=== PATIENT | female | born 1985 | race Caucasian/White ===

== ENCOUNTER 2016-07-11 11:26 | Inpatient (IN) | payer OTHER ==
[2016-07-11 15:22] VITALS: BMI 32.3
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
[2016-07-11] MEDS ORDERED: NICOTINE 14 MG/24 HOURS TOPICAL PATCH TD PRN (18:20)
[2016-07-11] MEDS ORDERED: MENTHOL/PHENOL 1 EACH UD MM PRN (18:20)
[2016-07-11] MEDS ORDERED: MAGNESIUM HYDROX 2400MG/30ML ORAL SUSPENSION 30 ML CUP PO PRN (18:20)
[2016-07-11] MEDS ORDERED: MAG HYDROX/AL HYDROX/SIMETH 30 ML UNIT-DOSE CUP PO PRN (18:20)
[2016-07-11] MEDS ORDERED: MAGNESIUM CITRATE 300 ML BOTTLE PO PRN (18:20)
[2016-07-11] MEDS ORDERED: guaiFENesin/D-METHORPHAN HB 10 ML UNIT-DOSE CUPS PO PRN (18:20)
[2016-07-11] MEDS ORDERED: LOPERAMIDE HCL 2 MG CAPSULE PO PRN (18:20)
[2016-07-11] MEDS ORDERED: P-EPHED 60MG/TRIPROLIDI 2.5MG TABLET PO PRN (18:20)
[2016-07-11] MEDS ORDERED: COLLOIDAL OATMEAL 1 BAR EACH TP PRN (18:25)
[2016-07-11] MEDS ORDERED: METHADONE HCL 10 MG TABLET (FOR DETOX USE ONLY) PO ONE ×2 (18:45→23:00)
[2016-07-11] MEDS: BACITRACIN 0.9 GM PACKET TP PRN (18:58)
[2016-07-11] MEDS: diazePAM 5 MG TABLET PO PRN (18:59)
[2016-07-11] MEDS: NICOTINE POLACRILEX 2 MG GUM BC PRN (20:11)
[2016-07-11] MEDS: THIAMINE HCL 100 MG TABLET (FP) PO SCH (22:45)
[2016-07-11] MEDS: diphenhydrAMINE HCL 50 MG CAPSULE PO PRN (22:46)
[2016-07-11 23:45] LABS: URINE APPEARANCE SLCLOUDY; URINE BILIRUBIN NEGATIVE (NEGATIVE); URINE COLOR YELLOW; URINE GLUCOSE (UA) NEGATIVE (NEGATIVE); URINE KETONE NEGATIVE (NEGATIVE); URINE LEUK ESTERASE NEGATIVE (NEGATIVE); URINE NITRITE NEGATIVE (NEGATIVE); URINE UROBILINOGEN 2.0 E.U/dl E.U./dl (0.2-1.0)
[2016-07-12 00:08] LABS: URINE BLOOD 2+ (NEGATIVE); URINE PROTEIN 1+ (NEGATIVE)
[2016-07-12 00:26] LABS: GRANULAR CASTS 1 /lpf; URINE MUCUS RARE; URINE RBC 5 /hpf (0-3); URINE WBC 8 /hpf (3-5)
[2016-07-12] MEDS ORDERED: METHADONE HCL 10 MG TABLET (FOR DETOX USE ONLY) PO ONE (10:00)
[2016-07-12 10:14] LABS: MCH 32.2 pg (25.7-33.7); MCHC 34.1 g/dl (32.0-36.0); MEAN CELL VOLUME 94.4 fl (80-96); MEAN PLT VOLUME 9.7 fl (7.5-11.1); PLATELET COUNT 181 K/MM3 (134-434); RDW 12.5 % (11.6-15.6); WHITE BLOOD COUNT 5.9 K/mm3 (4.0-10.0)
[2016-07-12 10:29] LABS: ALBUMIN 3.7 g/dl (3.4-5.0); ALK PHOS 88 U/L (45-117); ANION GAP 9 (8-16); BILIRUBIN,TOTAL 0.3 mg/dL (0.2-1.0); CALCIUM 8.5 mg/dL (8.5-10.1); CO2 27 mmol/L (21-32); CREATININE 0.9 mg/dL (0.55-1.02); GLUCOSE,RANDOM 120 mg/dL (74-106); SGOT/AST 29 U/L (15-37); SGPT/ALT 38 U/L (12-78); TOT PROT 7.8 g/dl (6.4-8.2)
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
[2016-07-12] MEDS: PRENATAL VITAMINS W/ FOLIC ACID TABLET (FP) PO SCH (11:15)
[2016-07-12] MEDS: diazePAM 5 MG TABLET PO PRN ×3 (11:29→22:40)
[2016-07-12] MEDS: NICOTINE POLACRILEX 2 MG GUM BC PRN ×2 (11:30→22:45)
--- NOTE | 2016-07-12 12:20 | EKG ---
Test Reason : Blood Pressure : / mmHG Vent. Rate : 079 BPM Atrial Rate : 079 BPM P-R Int : 160 ms QRS Dur : 090 ms QT Int : 396 ms P-R-T Axes : 000 -05 014 degrees QTc Int : 454 ms NORMAL SINUS RHYTHM CANNOT RULE OUT ANTERIOR INFARCT , AGE UNDETERMINED ABNORMAL ECG NO PREVIOUS ECGS AVAILABLE Confirmed by MD ZENA, YAW (2012) on 07/12/2016 12:19:46 PM Referred By: Confirmed By:YAW FREITAS MD
--- NOTE | 2016-07-12 15:02 | PN ---
BHS COWS - Scale Resting Pulse: 1= [place] 81-100 Sweatin= Chills/Flushing Restless Observation: 3= Extraneous Movement Pupil Size: 1= Pupils >than Normal Bone or Joint Aches: 2= Severe Diffuse Aches Runny Nose/ Eye Tearin= Runny Nose/Eyes GI Upset > 30mins: 2= Nausea/Diarrhea Tremor Observation of Outstretched Hands: 2= Slight Tremor Visible Yawning Observation: 1= 1-2x During Session Anxiety or Irritability: 2=Irritable/Anxious Goose Flesh Skin: 0=Smooth Skin COWS Score: 17 S Progress Note (SOAP) Subjective: ALERT,IRRITABLE,ANXIOUS,INTERRUPTED SLEEP,PAIN IN THE BODY AND BACK Objective: 07/12/16 15:00 Vital Signs Temperature 97.9 F 07/12/16 10:00 Pulse Rate 81 07/12/16 10:00 Respiratory Rate 18 07/12/16 10:00 Blood Pressure 119/61 07/12/16 10:00 O2 Sat by Pulse Oximetry (%) EKG NSR,INVERTED T IN V3 NO CHEST PAIN,NO SOB,NO DIZZINESS Laboratory Last Values WBC 5.9 K/mm3 (4.0-10.0) 07/12/16 06:00 RBC 4.48 M/mm3 (3.60-5.2) 07/12/16 06:00 Hgb 14.4 GM/dL (10.7-15.3) 07/12/16 06:00 Hct 42.3 % (32.4-45.2) 07/12/16 06:00 MCV 94.4 fl (80-96) 07/12/16 06:00 MCHC 34.1 g/dl (32.0-36.0) 07/12/16 06:00 RDW 12.5 % (11.6-15.6) 07/12/16 06:00 Plt Count 181 K/MM3 (134-434) 07/12/16 06:00 MPV 9.7 fl (7.5-11.1) 07/12/16 06:00 Sodium 142 mmol/L (136-145) 07/12/16 06:00 Potassium 4.3 mmol/L (3.5-5.1) 07/12/16 06:00 Chloride 106 mmol/L (98-107) 07/12/16 06:00 Carbon Dioxide 27 mmol/L (21-32) 07/12/16 06:00 Anion Gap 9 (8-16) 07/12/16 06:00 BUN 8 mg/dL (7-18) 07/12/16 06:00 Creatinine 0.9 mg/dL (0.55-1.02) 07/12/16 06:00 Creat Clearance w eGFR > 60 (>60) 07/12/16 06:00 Random Glucose 120 mg/dL (74-106) H 07/12/16 06:00 Calcium 8.5 mg/dL (8.5-10.1) 07/12/16 06:00 Total Bilirubin 0.3 mg/dL (0.2-1.0) 07/12/16 06:00 AST 29 U/L (15-37) 07/12/16 06:00 ALT 38 U/L (12-78) 07/12/16 06:00 Alkaline Phosphatase 88 U/L (45-117) 07/12/16 06:00 Total Protein 7.8 g/dl (6.4-8.2) 07/12/16 06:00 Albumin 3.7 g/dl (3.4-5.0) 07/12/16 06:00 Urine Color Yellow 07/11/16 23:40 Urine Appearance Slcloudy 07/11/16 23:40 Urine pH 8.0 (5.0-8.0) 07/11/16 23:40 Ur Specific [place] 1.015 (1.005-1.025) 07/11/16 23:40 Urine Protein 1+ (NEGATIVE) H 07/11/16 23:40 Urine Glucose (UA) Negative (NEGATIVE) 07/11/16 23:40 Urine Ketones Negative (NEGATIVE) 07/11/16 23:40 Urine Blood 2+ (NEGATIVE) H 07/11/16 23:40 Urine Nitrite Negative (NEGATIVE) 07/11/16 23:40 Urine Bilirubin Negative (NEGATIVE) 07/11/16 23:40 Urine Urobilinogen 2.0 e.u/dl E.U./dl (0.2-1.0) H 07/11/16 23:40 Ur Leukocyte Esterase Negative (NEGATIVE) 07/11/16 23:40 Urine RBC 5 /hpf (0-3) 07/11/16 23:40 Urine WBC 8 /hpf (3-5) 07/11/16 23:40 Ur Epithelial Cells Rare /hpf (FEW) 07/11/16 23:40 Granular Casts 1 /lpf 07/11/16 23:40 Urine Mucus Rare 07/11/16 23:40 RPR Titer Nonreactive (NONREACTIVE) 07/12/16 06:00 Assessment: 07/12/16 15:01 WITHDRAWAL SYMPTOM Plan: CONTINUE DETOX,REPEAT UA,BGM MONITORING,INITIAL GLUCOSE 120
[2016-07-12] MEDS: MIRTAZAPINE 15 MG TABLET (FP) PO SCH (22:40)
[2016-07-12] MEDS: diphenhydrAMINE HCL 50 MG CAPSULE PO PRN (22:40)
[2016-07-12] MEDS: THIAMINE HCL 100 MG TABLET (FP) PO SCH (22:40)
[2016-07-13] MEDS ORDERED: METHADONE HCL 5 MG TABLET (FOR DETOX USE ONLY) PO ONE (10:00)
[2016-07-13] MEDS: PRENATAL VITAMINS W/ FOLIC ACID TABLET (FP) PO SCH (10:43)
[2016-07-13] MEDS: BACITRACIN 0.9 GM PACKET TP PRN ×2 (10:45→22:35)
[2016-07-13] MEDS: diazePAM 5 MG TABLET PO PRN ×3 (12:44→22:35)
--- NOTE | 2016-07-13 12:51 | PN ---
BHS COWS - Scale Resting Pulse: 1= [place] 81-100 Sweatin= Chills/Flushing Restless Observation: 3= Extraneous Movement Pupil Size: 1= Pupils >than Normal Bone or Joint Aches: 2= Severe Diffuse Aches Runny Nose/ Eye Tearin= Runny Nose/Eyes GI Upset > 30mins: 3= Vomiting/Diarrhea Tremor Observation of Outstretched Hands: 2= Slight Tremor Visible Yawning Observation: 1= 1-2x During Session Anxiety or Irritability: 2=Irritable/Anxious Goose Flesh Skin: 0=Smooth Skin COWS Score: 18 BHS Progress Note (SOAP) Subjective: ALERT,IRRITABLE,ANXIOUS,INTERRUPTED SLEEP,TREMOR,PAIN IN THE BOD AND BACK, MULTIPLE ABRASION OF FACE FROM SCRATCH Objective: 07/13/16 12:50 Vital Signs Temperature 99 F 07/13/16 09:56 Pulse Rate 88 07/13/16 09:56 Respiratory Rate 18 07/13/16 09:56 Blood Pressure 121/75 07/13/16 09:56 O2 Sat by Pulse Oximetry (%) BGM 99 Assessment: 07/13/16 12:50 WITHDRAWAL SYMPTOM Plan: CONTINUE DETOX
[2016-07-13] MEDS: NICOTINE POLACRILEX 2 MG GUM BC PRN ×3 (13:19→21:09)
[2016-07-13] MEDS: diphenhydrAMINE HCL 50 MG CAPSULE PO PRN (22:34)
[2016-07-13] MEDS: MIRTAZAPINE 15 MG TABLET (FP) PO SCH (22:35)
[2016-07-13] MEDS: THIAMINE HCL 100 MG TABLET (FP) PO SCH (22:35)
[2016-07-14] MEDS ORDERED: METHADONE HCL 5 MG TABLET (FOR DETOX USE ONLY) PO ONE (10:00)
[2016-07-14] MEDS: PRENATAL VITAMINS W/ FOLIC ACID TABLET (FP) PO SCH (10:36)
[2016-07-14] MEDS: diazePAM 5 MG TABLET PO PRN ×2 (10:36→17:12)
[2016-07-14] MEDS: BACITRACIN 0.9 GM PACKET TP PRN ×2 (10:38→22:23)
[2016-07-14] MEDS: NICOTINE POLACRILEX 2 MG GUM BC PRN (10:39)
--- NOTE | 2016-07-14 10:39 | PN ---
BHS Progress Note (SOAP) Subjective: sweats shakes interrupted sleep agitation anxiety body aches Objective: 07/14/16 10:38 Vital Signs Temperature 97.7 F 07/14/16 10:03 Pulse Rate 86 07/14/16 10:03 Respiratory Rate 16 07/14/16 10:03 Blood Pressure 129/59 07/14/16 10:03 O2 Sat by Pulse Oximetry (%) Laboratory Tests 07/11/16 07/12/16 07/12/16 23:40 06:00 06:00 WBC 5.9 RBC 4.48 Hgb 14.4 Hct 42.3 MCV 94.4 MCHC 34.1 RDW 12.5 Plt Count 181 MPV 9.7 Sodium 142 Potassium 4.3 Chloride 106 Carbon Dioxide 27 Anion Gap 9 BUN 8 Creatinine 0.9 Creat Clearance w eGFR > 60 POC Glucometer Random Glucose 120 H Calcium 8.5 Total Bilirubin 0.3 AST 29 ALT 38 Alkaline Phosphatase 88 Total Protein 7.8 Albumin 3.7 Urine Color Yellow Urine Appearance Slcloudy Urine pH 8.0 Ur Specific [place] 1.015 Urine Protein 1+ H Urine Glucose (UA) Negative Urine Ketones Negative Urine Blood 2+ H Urine Nitrite Negative Urine Bilirubin Negative Urine Urobilinogen 2.0 e.u/dl H Ur Leukocyte Esterase Negative Urine RBC 5 Urine WBC 8 Ur Epithelial Cells Rare Granular Casts 1 Urine Mucus Rare RPR Titer 07/12/16 07/13/16 07/14/16 06:00 06:40 07:04 WBC RBC Hgb Hct MCV MCHC RDW Plt Count MPV Sodium Potassium Chloride Carbon Dioxide Anion Gap BUN Creatinine Creat Clearance w eGFR POC Glucometer 99 92 Random Glucose Calcium Total Bilirubin AST ALT Alkaline Phosphatase Total Protein Albumin Urine Color Urine Appearance Urine pH Ur Specific [place] Urine Protein Urine Glucose (UA) Urine Ketones Urine Blood Urine Nitrite Urine Bilirubin Urine Urobilinogen Ur Leukocyte Esterase Urine RBC Urine WBC Ur Epithelial Cells Granular Casts Urine Mucus RPR Titer Nonreactive awake/alert ambulating no acute distress Assessment: 07/14/16 10:38 withdrawal sx Plan: continue detox increase fluids
[2016-07-14] MEDS: ACETAMINOPHEN 325 MG TABLET (FP) PO PRN ×2 (12:20→22:24)
[2016-07-14] MEDS: diphenhydrAMINE HCL 50 MG CAPSULE PO PRN (22:23)
[2016-07-14] MEDS: MIRTAZAPINE 15 MG TABLET (FP) PO SCH (22:23)
[2016-07-14] MEDS: THIAMINE HCL 100 MG TABLET (FP) PO SCH (22:23)
[2016-07-15] MEDS ORDERED: METHADONE HCL 10 MG TABLET (FOR DETOX USE ONLY) PO ONE (10:00)
--- NOTE | 2016-07-15 10:32 | PN ---
BHS Progress Note (SOAP) Subjective: interrupted sleep, hip pains , restless legs, boil on rt buttock . Objective: 07/15/16 10:29 Vital Signs Temperature 98.1 F 07/15/16 06:35 Pulse Rate 75 07/15/16 06:35 Respiratory Rate 18 07/15/16 06:35 Blood Pressure 113/60 07/15/16 06:35 O2 Sat by Pulse Oximetry (%) Laboratory Tests 07/11/16 07/12/16 07/12/16 23:40 06:00 06:00 WBC 5.9 RBC 4.48 Hgb 14.4 Hct 42.3 MCV 94.4 MCHC 34.1 RDW 12.5 Plt Count 181 MPV 9.7 Sodium 142 Potassium 4.3 Chloride 106 Carbon Dioxide 27 Anion Gap 9 BUN 8 Creatinine 0.9 Creat Clearance w eGFR > 60 POC Glucometer Random Glucose 120 H Calcium 8.5 Total Bilirubin 0.3 AST 29 ALT 38 Alkaline Phosphatase 88 Total Protein 7.8 Albumin 3.7 Urine Color Yellow Urine Appearance Slcloudy Urine pH 8.0 Ur Specific [place] 1.015 Urine Protein 1+ H Urine Glucose (UA) Negative Urine Ketones Negative Urine Blood 2+ H Urine Nitrite Negative Urine Bilirubin Negative Urine Urobilinogen 2.0 e.u/dl H Ur Leukocyte Esterase Negative Urine RBC 5 Urine WBC 8 Ur Epithelial Cells Rare Granular Casts 1 Urine Mucus Rare RPR Titer 07/12/16 07/13/16 07/14/16 06:00 06:40 07:04 WBC RBC Hgb Hct MCV MCHC RDW Plt Count MPV Sodium Potassium Chloride Carbon Dioxide Anion Gap BUN Creatinine Creat Clearance w eGFR POC Glucometer 99 92 Random Glucose Calcium Total Bilirubin AST ALT Alkaline Phosphatase Total Protein Albumin Urine Color Urine Appearance Urine pH Ur Specific [place] Urine Protein Urine Glucose (UA) Urine Ketones Urine Blood Urine Nitrite Urine Bilirubin Urine Urobilinogen Ur Leukocyte Esterase Urine RBC Urine WBC Ur Epithelial Cells Granular Casts Urine Mucus RPR Titer Nonreactive 07/15/16 05:30 WBC RBC Hgb Hct MCV MCHC RDW Plt Count MPV Sodium Potassium Chloride Carbon Dioxide Anion Gap BUN Creatinine Creat Clearance w eGFR POC Glucometer 96 Random Glucose Calcium Total Bilirubin AST ALT Alkaline Phosphatase Total Protein Albumin Urine Color Urine Appearance Urine pH Ur Specific [place] Urine Protein Urine Glucose (UA) Urine Ketones Urine Blood Urine Nitrite Urine Bilirubin Urine Urobilinogen Ur Leukocyte Esterase Urine RBC Urine WBC Ur Epithelial Cells Granular Casts Urine Mucus RPR Titer pt aox3 david n nad ambulating Assessment: 07/15/16 10:31 withdrawal sx;s abscess on rt buttock flexeril 10mg tid/prn warm compresses 07/15/16 10:32
[2016-07-15] MEDS: PRENATAL VITAMINS W/ FOLIC ACID TABLET (FP) PO SCH (10:41)
[2016-07-15] MEDS: ACETAMINOPHEN 325 MG TABLET (FP) PO PRN ×2 (10:48→17:59)
[2016-07-15] MEDS: CYCLOBENZAPRINE HCL 10 MG TABLET (FP) PO PRN ×2 (11:47→22:29)
[2016-07-15] MEDS: CEPHALEXIN MONOHYDRATE 500 MG CAPSULE (UD) PO SCH ×2 (11:47→17:57)
[2016-07-15] MEDS: NICOTINE POLACRILEX 2 MG GUM BC PRN ×2 (12:15→19:31)
[2016-07-15] MEDS: MIRTAZAPINE 15 MG TABLET (FP) PO SCH (22:29)
[2016-07-15] MEDS: THIAMINE HCL 100 MG TABLET (FP) PO SCH (22:29)
[2016-07-15] MEDS: diphenhydrAMINE HCL 50 MG CAPSULE PO PRN (22:30)
[2016-07-16] MEDS: CEPHALEXIN MONOHYDRATE 500 MG CAPSULE (UD) PO SCH ×3 (00:12→12:43)
[2016-07-16] MEDS ORDERED: METHADONE HCL 5 MG TABLET (FOR DETOX USE ONLY) PO ONE (06:00)
[2016-07-16] MEDS: CYCLOBENZAPRINE HCL 10 MG TABLET (FP) PO PRN ×2 (06:13→13:45)
--- NOTE | 2016-07-16 08:57 | DS ---
[facility] Detox Discharge Summary Admission Date: 07/11/16 Discharge Date: 07/16/16 - History Present History: Opioid Dependence - Physical Exam Results Vital Signs: Vital Signs Temperature 97.5 F L 07/16/16 06:40 Pulse Rate 66 07/16/16 06:40 Respiratory Rate 18 07/16/16 06:40 Blood Pressure 108/63 07/16/16 06:40 O2 Sat by Pulse Oximetry (%) - Treatment Hospital Course: Detox Protocol Followed, Detoxed Safely, Responded well, Discharged Condition Good, Rehab Referral Accepted - Medication Discharge Medications: Ambulatory Orders Mirtazapine [Remeron -] 15 mg PO HS 07/11/16 Mirtazapine [Remeron -] 15 mg PO HS #30 tablet 07/12/16 - Diagnosis (1) Abrasion of skin Current Visit: Yes Status: Chronic (2) Cocaine dependence Current Visit: Yes Status: Chronic Qualifiers: Substance use status: uncomplicated Qualified Code(s): F14.20 - Cocaine dependence, uncomplicated (3) Insomnia Current Visit: Yes Status: Acute (4) Nicotine dependence Current Visit: Yes Status: Chronic Qualifiers: Nicotine product type: cigarettes Substance use status: uncomplicated Qualified Code(s): F17.210 - Nicotine dependence, cigarettes, uncomplicated (5) Opioid dependence with withdrawal Current Visit: Yes Status: Chronic (6) Substance induced mood disorder Current Visit: Yes Status: Acute (7) Bipolar II disorder Current Visit: Yes Status: Suspected (8) Hepatitis C antibody test positive Current Visit: Yes Status: Resolved - AMA Did Patient Leave Against Medical Advice: No
[2016-07-16] MEDS: PRENATAL VITAMINS W/ FOLIC ACID TABLET (FP) PO SCH (10:43)
[2016-07-16] MEDS: NICOTINE POLACRILEX 2 MG GUM BC PRN (10:46)
[2016-07-16 14:25] VITALS: BP 124/75; PULSE 78; TEMP 97.7
== END 2016-07-16 15:54 | disposition other institution (70) | DRG 773 ==
LOC: YASAS 11:26 → Y6N 17:59
PROVIDERS: ADMIT Internal Medicine; ATTEND Internal Medicine
PROC: HZ2ZZZZ Detoxification Services for Substance Abuse Treatment (ICD-10-PCS; principal; 2016-07-11)
DX: F11.23 Opioid dependence with withdrawal (principal); F14.20 Cocaine dependence, uncomplicated; F17.210 Nicotine dependence, cigarettes, uncomplicated; F19.24 Other psychoactive substance dependence with psychoactive substance-induced mood disorder; F31.81 Bipolar II disorder; B18.2 Chronic viral hepatitis C; G47.00 Insomnia, unspecified; L02.31 Cutaneous abscess of buttock; Z91.5 Personal history of self-harm; E66.9 Obesity, unspecified; Z68.32 Body mass index [BMI] 32.0-32.9, adult; R00.0 Tachycardia, unspecified; T14.8 Other injury of unspecified body region; L08.9 Local infection of the skin and subcutaneous tissue, unspecified; X58.XXXA Exposure to other specified factors, initial encounter; Y93.89 Activity, other specified; Y92.9 Unspecified place or not applicable
CPT/HCPCS: 36415; 80053; 81003; 81015; 85027; 86593; 93005; 93010

== ENCOUNTER 2016-07-16 15:58 | Inpatient (IN) | payer OTHER ==
[2016-07-16] MEDS ORDERED: P-EPHED 60MG/TRIPROLIDI 2.5MG TABLET PO PRN (16:35)
[2016-07-16] MEDS ORDERED: LOPERAMIDE HCL 2 MG CAPSULE PO PRN (16:35)
[2016-07-16] MEDS ORDERED: MAG HYDROX/AL HYDROX/SIMETH 30 ML UNIT-DOSE CUP PO PRN (16:35)
[2016-07-16] MEDS ORDERED: MENTHOL/PHENOL 1 EACH UD MM PRN (16:35)
[2016-07-16] MEDS ORDERED: NICOTINE 14 MG/24 HOURS TOPICAL PATCH TD PRN (16:35)
[2016-07-16] MEDS ORDERED: MAGNESIUM CITRATE 300 ML BOTTLE PO PRN (16:35)
[2016-07-16] MEDS ORDERED: MAGNESIUM HYDROX 2400MG/30ML ORAL SUSPENSION 30 ML CUP PO PRN (16:35)
[2016-07-16] MEDS ORDERED: guaiFENesin/D-METHORPHAN HB 10 ML UNIT-DOSE CUPS PO PRN (16:35)
--- NOTE | 2016-07-16 16:35 | HP ---
[facility] Rehab Assess/Revision - Admission History Admitted to Rehab from: [facility] Date of Admission to Rehab: 07/16/16 - Findings Detox History & Physical reviewed: Yes Concur with findings: Yes Comments/Additional Findings: Transferred from detox to rehab admission as per protocol
[2016-07-16] MEDS: CEPHALEXIN MONOHYDRATE 500 MG CAPSULE (UD) PO SCH ×2 (18:04→23:43)
[2016-07-16] MEDS: NICOTINE POLACRILEX 2 MG GUM BUC PRN (18:04)
[2016-07-16] MEDS: MIRTAZAPINE 15 MG TABLET (FP) PO SCH (21:04)
[2016-07-16] MEDS: THIAMINE HCL 100 MG TABLET (FP) PO SCH (21:04)
[2016-07-17] MEDS: CEPHALEXIN MONOHYDRATE 500 MG CAPSULE (UD) PO SCH ×4 (06:27→23:49)
[2016-07-17] MEDS: CYCLOBENZAPRINE HCL 10 MG TABLET (FP) PO PRN ×2 (06:28→17:41)
[2016-07-17] MEDS: PRENATAL VITAMINS W/ FOLIC ACID TABLET (FP) PO SCH (09:56)
[2016-07-17] MEDS: NICOTINE POLACRILEX 2 MG GUM BUC PRN ×2 (09:57→17:42)
[2016-07-17 14:06] LABS: HIV 1 & 2 AB NEGATIVE; HIV 1 AGp24 NEGATIVE
[2016-07-17] MEDS ORDERED: PT OWN MED DRAWER 7, Y5N ONE ×3 (20:05→23:39)
[2016-07-17] MEDS: MIRTAZAPINE 15 MG TABLET (FP) PO SCH (21:12)
[2016-07-17] MEDS: THIAMINE HCL 100 MG TABLET (FP) PO SCH (21:12)
[2016-07-17] MEDS: BACITRACIN 0.9 GM PACKET TP SCH (21:12)
[2016-07-17] MEDS: diphenhydrAMINE HCL 50 MG CAPSULE PO PRN (21:12)
[2016-07-18] MEDS: CEPHALEXIN MONOHYDRATE 500 MG CAPSULE (UD) PO SCH ×3 (06:10→17:52)
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
[2016-07-18] MEDS: NICOTINE POLACRILEX 2 MG GUM BUC PRN ×2 (08:56→14:33)
[2016-07-18] MEDS: PRENATAL VITAMINS W/ FOLIC ACID TABLET (FP) PO SCH (10:00)
[2016-07-18] MEDS: BACITRACIN 0.9 GM PACKET TP SCH ×2 (10:00→21:28)
[2016-07-18] MEDS: hydrOXYzine PAMOATE 50 MG CAPSULE (FP) PO PRN (15:18)
[2016-07-18] MEDS: CYCLOBENZAPRINE HCL 10 MG TABLET (FP) PO PRN (17:53)
[2016-07-18] MEDS: THIAMINE HCL 100 MG TABLET (FP) PO SCH (21:28)
[2016-07-18] MEDS: MIRTAZAPINE 15 MG TABLET (FP) PO SCH (21:28)
[2016-07-18] MEDS: QUEtiapine FUMARATE 50 MG TABLET PO SCH (21:29)
[2016-07-19] MEDS: CEPHALEXIN MONOHYDRATE 500 MG CAPSULE (UD) PO SCH ×4 (06:47→18:58)
[2016-07-19] MEDS: PRENATAL VITAMINS W/ FOLIC ACID TABLET (FP) PO SCH (09:42)
[2016-07-19] MEDS: NICOTINE POLACRILEX 2 MG GUM BUC PRN ×3 (09:42→18:58)
[2016-07-19] MEDS: BACITRACIN 0.9 GM PACKET TP SCH ×2 (09:42→21:03)
[2016-07-19] MEDS: hydrOXYzine PAMOATE 50 MG CAPSULE (FP) PO PRN ×3 (09:42→18:58)
[2016-07-19] MEDS: CYCLOBENZAPRINE HCL 10 MG TABLET (FP) PO PRN (12:33)
[2016-07-19] MEDS ORDERED: PT OWN MED DRAWER 7, Y5N ONE ×2 (19:50→22:44)
[2016-07-19] MEDS: THIAMINE HCL 100 MG TABLET (FP) PO SCH (21:03)
[2016-07-19] MEDS: MIRTAZAPINE 15 MG TABLET (FP) PO SCH (21:03)
[2016-07-19] MEDS: QUEtiapine FUMARATE 50 MG TABLET PO SCH (21:03)
[2016-07-20] MEDS: CEPHALEXIN MONOHYDRATE 500 MG CAPSULE (UD) PO SCH ×6 (00:15→23:50)
[2016-07-20] MEDS: PRENATAL VITAMINS W/ FOLIC ACID TABLET (FP) PO SCH (09:36)
[2016-07-20] MEDS: BACITRACIN 0.9 GM PACKET TP SCH ×2 (09:36→21:08)
[2016-07-20] MEDS: NICOTINE POLACRILEX 2 MG GUM BUC PRN ×2 (09:36→17:33)
[2016-07-20] MEDS: hydrOXYzine PAMOATE 50 MG CAPSULE (FP) PO PRN ×2 (09:38→17:32)
[2016-07-20] MEDS: MIRTAZAPINE 15 MG TABLET (FP) PO SCH (21:08)
[2016-07-20] MEDS: QUEtiapine FUMARATE 50 MG TABLET PO SCH (21:08)
[2016-07-20] MEDS: THIAMINE HCL 100 MG TABLET (FP) PO SCH (21:08)
[2016-07-20] MEDS ORDERED: PT OWN MED DRAWER 7, Y5N ONE (22:21)
[2016-07-21] MEDS: CEPHALEXIN MONOHYDRATE 500 MG CAPSULE (UD) PO SCH ×3 (06:26→18:10)
[2016-07-21] MEDS: BACITRACIN 0.9 GM PACKET TP SCH ×2 (10:20→21:14)
[2016-07-21] MEDS: PRENATAL VITAMINS W/ FOLIC ACID TABLET (FP) PO SCH (10:20)
[2016-07-21] MEDS: hydrOXYzine PAMOATE 50 MG CAPSULE (FP) PO PRN (10:21)
[2016-07-21] MEDS: NICOTINE POLACRILEX 2 MG GUM BUC PRN ×2 (10:22→18:11)
[2016-07-21] MEDS ORDERED: PT OWN MED DRAWER 7, Y5N ONE ×2 (21:05→22:43)
[2016-07-21] MEDS: THIAMINE HCL 100 MG TABLET (FP) PO SCH (21:13)
[2016-07-21] MEDS: MIRTAZAPINE 15 MG TABLET (FP) PO SCH (21:13)
[2016-07-21] MEDS: QUEtiapine FUMARATE 50 MG TABLET PO SCH (21:13)
[2016-07-22] MEDS: BACITRACIN 0.9 GM PACKET TP SCH ×2 (10:06→21:01)
[2016-07-22] MEDS: PRENATAL VITAMINS W/ FOLIC ACID TABLET (FP) PO SCH (10:06)
[2016-07-22] MEDS: NICOTINE POLACRILEX 2 MG GUM BUC PRN ×2 (10:07→13:16)
[2016-07-22] MEDS: hydrOXYzine PAMOATE 50 MG CAPSULE (FP) PO PRN (13:14)
[2016-07-22] MEDS: THIAMINE HCL 100 MG TABLET (FP) PO SCH (21:02)
[2016-07-22] MEDS: MIRTAZAPINE 15 MG TABLET (FP) PO SCH (21:02)
[2016-07-22] MEDS: QUEtiapine FUMARATE 50 MG TABLET PO SCH (21:02)
[2016-07-22] MEDS ORDERED: PT OWN MED DRAWER 7, Y5N ONE (22:03)
[2016-07-23] MEDS: NICOTINE POLACRILEX 2 MG GUM BUC PRN (09:54)
[2016-07-23] MEDS: BACITRACIN 0.9 GM PACKET TP SCH ×2 (09:54→21:09)
[2016-07-23] MEDS: PRENATAL VITAMINS W/ FOLIC ACID TABLET (FP) PO SCH (09:54)
[2016-07-23] MEDS ORDERED: PT OWN MED DRAWER 7, Y5N ONE (19:59)
[2016-07-23] MEDS: diphenhydrAMINE HCL 50 MG CAPSULE PO PRN (21:08)
[2016-07-23] MEDS: THIAMINE HCL 100 MG TABLET (FP) PO SCH (21:08)
[2016-07-23] MEDS: QUEtiapine FUMARATE 50 MG TABLET PO SCH (21:08)
[2016-07-23] MEDS: MIRTAZAPINE 15 MG TABLET (FP) PO SCH (21:08)
[2016-07-24] MEDS: PRENATAL VITAMINS W/ FOLIC ACID TABLET (FP) PO SCH (09:53)
[2016-07-24] MEDS: BACITRACIN 0.9 GM PACKET TP SCH ×2 (09:53→21:06)
[2016-07-24] MEDS: NICOTINE POLACRILEX 2 MG GUM BUC PRN ×2 (09:55→13:52)
[2016-07-24] MEDS: QUEtiapine FUMARATE 50 MG TABLET PO SCH (21:06)
[2016-07-24] MEDS: MIRTAZAPINE 15 MG TABLET (FP) PO SCH (21:06)
[2016-07-24] MEDS: THIAMINE HCL 100 MG TABLET (FP) PO SCH (21:06)
[2016-07-24] MEDS: diphenhydrAMINE HCL 50 MG CAPSULE PO PRN (21:06)
[2016-07-25] MEDS: BACITRACIN 0.9 GM PACKET TP SCH ×2 (09:47→21:01)
[2016-07-25] MEDS: PRENATAL VITAMINS W/ FOLIC ACID TABLET (FP) PO SCH (09:47)
[2016-07-25] MEDS: NICOTINE POLACRILEX 2 MG GUM BUC PRN ×2 (09:48→18:07)
[2016-07-25] MEDS ORDERED: COLLOIDAL OATMEAL 1 BAR EACH TP PRN (13:21)
[2016-07-25] MEDS: THIAMINE HCL 100 MG TABLET (FP) PO SCH (21:01)
[2016-07-25] MEDS: MIRTAZAPINE 15 MG TABLET (FP) PO SCH (21:01)
[2016-07-25] MEDS: QUEtiapine FUMARATE 50 MG TABLET PO SCH (21:01)
[2016-07-26] MEDS: BACITRACIN 0.9 GM PACKET TP SCH ×2 (09:56→21:18)
[2016-07-26] MEDS: PRENATAL VITAMINS W/ FOLIC ACID TABLET (FP) PO SCH (09:56)
[2016-07-26] MEDS: NICOTINE POLACRILEX 2 MG GUM BUC PRN (09:57)
[2016-07-26] MEDS: THIAMINE HCL 100 MG TABLET (FP) PO SCH (21:18)
[2016-07-26] MEDS: MIRTAZAPINE 15 MG TABLET (FP) PO SCH (21:18)
[2016-07-26] MEDS: QUEtiapine FUMARATE 50 MG TABLET PO SCH (21:18)
[2016-07-26] MEDS: diphenhydrAMINE HCL 50 MG CAPSULE PO PRN (21:19)
[2016-07-27] MEDS: PRENATAL VITAMINS W/ FOLIC ACID TABLET (FP) PO SCH (09:35)
[2016-07-27] MEDS: BACITRACIN 0.9 GM PACKET TP SCH ×2 (09:35→21:02)
[2016-07-27] MEDS: NICOTINE POLACRILEX 2 MG GUM BUC PRN ×2 (09:37→19:01)
[2016-07-27] MEDS: THIAMINE HCL 100 MG TABLET (FP) PO SCH (21:02)
[2016-07-27] MEDS: diphenhydrAMINE HCL 50 MG CAPSULE PO PRN (21:02)
[2016-07-27] MEDS: MIRTAZAPINE 15 MG TABLET (FP) PO SCH (21:02)
[2016-07-27] MEDS: QUEtiapine FUMARATE 50 MG TABLET PO SCH (21:02)
[2016-07-28] MEDS: PRENATAL VITAMINS W/ FOLIC ACID TABLET (FP) PO SCH (10:02)
[2016-07-28] MEDS: BACITRACIN 0.9 GM PACKET TP SCH ×2 (10:02→21:05)
[2016-07-28] MEDS: NICOTINE POLACRILEX 2 MG GUM BUC PRN (10:04)
[2016-07-28] MEDS ORDERED: PT OWN MED DRAWER 7, Y5N ONE ×2 (21:03→22:40)
[2016-07-28] MEDS: THIAMINE HCL 100 MG TABLET (FP) PO SCH (21:04)
[2016-07-28] MEDS: MIRTAZAPINE 15 MG TABLET (FP) PO SCH (21:05)
[2016-07-28] MEDS: QUEtiapine FUMARATE 50 MG TABLET PO SCH (21:05)
[2016-07-28] MEDS: diphenhydrAMINE HCL 50 MG CAPSULE PO PRN (21:05)
[2016-07-29] MEDS ORDERED: PT OWN MED DRAWER 7, Y5N ONE ×3 (08:27→23:21)
[2016-07-29] MEDS: PRENATAL VITAMINS W/ FOLIC ACID TABLET (FP) PO SCH (09:56)
[2016-07-29] MEDS: BACITRACIN 0.9 GM PACKET TP SCH ×2 (09:56→21:10)
[2016-07-29] MEDS: NICOTINE POLACRILEX 2 MG GUM BUC PRN (09:57)
[2016-07-29] MEDS: hydrOXYzine PAMOATE 50 MG CAPSULE (FP) PO PRN (19:02)
[2016-07-29] MEDS: MIRTAZAPINE 15 MG TABLET (FP) PO SCH (21:08)
[2016-07-29] MEDS: QUEtiapine FUMARATE 50 MG TABLET PO SCH (21:08)
[2016-07-29] MEDS: THIAMINE HCL 100 MG TABLET (FP) PO SCH (21:08)
[2016-07-29] MEDS: diphenhydrAMINE HCL 50 MG CAPSULE PO PRN (21:10)
[2016-07-30] MEDS: PRENATAL VITAMINS W/ FOLIC ACID TABLET (FP) PO SCH (09:41)
[2016-07-30] MEDS: BACITRACIN 0.9 GM PACKET TP SCH ×2 (09:41→21:11)
[2016-07-30] MEDS: NICOTINE POLACRILEX 2 MG GUM BUC PRN (09:41)
[2016-07-30] MEDS ORDERED: PT OWN MED DRAWER 7, Y5N ONE (19:00)
[2016-07-30] MEDS: MIRTAZAPINE 15 MG TABLET (FP) PO SCH (21:10)
[2016-07-30] MEDS: THIAMINE HCL 100 MG TABLET (FP) PO SCH (21:10)
[2016-07-30] MEDS: diphenhydrAMINE HCL 50 MG CAPSULE PO PRN (21:11)
[2016-07-30] MEDS: QUEtiapine FUMARATE 50 MG TABLET PO SCH (21:11)
[2016-07-31] MEDS: BACITRACIN 0.9 GM PACKET TP SCH ×2 (09:44→21:03)
[2016-07-31] MEDS: PRENATAL VITAMINS W/ FOLIC ACID TABLET (FP) PO SCH (09:44)
[2016-07-31] MEDS: NICOTINE POLACRILEX 2 MG GUM BUC PRN ×2 (09:45→14:11)
[2016-07-31] MEDS ORDERED: PT OWN MED DRAWER 7, Y5N ONE ×2 (19:50→22:46)
[2016-07-31] MEDS: THIAMINE HCL 100 MG TABLET (FP) PO SCH (21:02)
[2016-07-31] MEDS: QUEtiapine FUMARATE 50 MG TABLET PO SCH (21:02)
[2016-07-31] MEDS: diphenhydrAMINE HCL 50 MG CAPSULE PO PRN (21:02)
[2016-07-31] MEDS: MIRTAZAPINE 15 MG TABLET (FP) PO SCH (21:02)
[2016-08-01] MEDS: BACITRACIN 0.9 GM PACKET TP SCH ×2 (09:50→21:13)
[2016-08-01] MEDS: PRENATAL VITAMINS W/ FOLIC ACID TABLET (FP) PO SCH (09:50)
[2016-08-01] MEDS: NICOTINE POLACRILEX 2 MG GUM BUC PRN ×2 (09:51→21:14)
[2016-08-01] MEDS: ACETAMINOPHEN 325 MG TABLET (FP) PO PRN (20:00)
[2016-08-01] MEDS: QUEtiapine FUMARATE 50 MG TABLET PO SCH (21:13)
[2016-08-01] MEDS: MIRTAZAPINE 15 MG TABLET (FP) PO SCH (21:14)
[2016-08-01] MEDS: THIAMINE HCL 100 MG TABLET (FP) PO SCH (21:14)
[2016-08-02] MEDS: PRENATAL VITAMINS W/ FOLIC ACID TABLET (FP) PO SCH (10:02)
[2016-08-02] MEDS: BACITRACIN 0.9 GM PACKET TP SCH ×2 (10:02→21:10)
[2016-08-02] MEDS: ACETAMINOPHEN 325 MG TABLET (FP) PO PRN (10:03)
[2016-08-02] MEDS: NICOTINE POLACRILEX 2 MG GUM BUC PRN (10:03)
[2016-08-02] MEDS ORDERED: PT OWN MED DRAWER 7, Y5N ONE (21:07)
[2016-08-02] MEDS: THIAMINE HCL 100 MG TABLET (FP) PO SCH (21:09)
[2016-08-02] MEDS: diphenhydrAMINE HCL 50 MG CAPSULE PO PRN (21:09)
[2016-08-02] MEDS: MIRTAZAPINE 15 MG TABLET (FP) PO SCH (21:09)
[2016-08-02] MEDS: QUEtiapine FUMARATE 50 MG TABLET PO SCH (21:09)
[2016-08-03] MEDS: PRENATAL VITAMINS W/ FOLIC ACID TABLET (FP) PO SCH (09:43)
[2016-08-03] MEDS: BACITRACIN 0.9 GM PACKET TP SCH ×2 (09:43→21:05)
[2016-08-03] MEDS: NICOTINE POLACRILEX 2 MG GUM BUC PRN (09:43)
[2016-08-03] MEDS: THIAMINE HCL 100 MG TABLET (FP) PO SCH (21:05)
[2016-08-03] MEDS: MIRTAZAPINE 15 MG TABLET (FP) PO SCH (21:05)
[2016-08-03] MEDS: QUEtiapine FUMARATE 50 MG TABLET PO SCH (21:05)
[2016-08-03] MEDS: diphenhydrAMINE HCL 50 MG CAPSULE PO PRN (21:05)
[2016-08-04] MEDS: PRENATAL VITAMINS W/ FOLIC ACID TABLET (FP) PO SCH (10:07)
[2016-08-04] MEDS: BACITRACIN 0.9 GM PACKET TP SCH ×2 (10:07→21:08)
[2016-08-04] MEDS: NICOTINE POLACRILEX 2 MG GUM BUC PRN ×2 (10:07→16:57)
--- NOTE | 2016-08-04 15:35 | PN ---
Psychiatric Progress Note Vital Signs: Vital Signs Period Temp Pulse Resp BP Sys/[place] Pulse Ox Last 24 Hr 98.1 F 64 17-18 121/74 Date of Session: 08/04/16 Chief Complaint:: Discharge visit HPI: Patient addressed Opioid and Cocaine dependence comrbid with Bipolar II disorder. Current Medications: Active Medications Generic Name Dose Route Start Last Admin Trade Name Freq PRN Reason Stop Dose Admin Acetaminophen 650 mg 07/16/16 16:35 08/02/16 10:03 Tylenol - PO 650 mg Q4H PRN Administration FEVER OR PAIN Al Hydroxide/Mg Hydroxide 30 ml 07/16/16 16:35 Mylanta Oral Suspension - PO Q6H PRN DYSPEPSIA Bacitracin 0.9 gm 07/17/16 22:00 08/04/16 10:07 Bacitracin - TP 0.9 gm BID JUANA Administration Colloidal Oatmeal 1 applic 07/25/16 13:21 07/25/16 21:02 Aveeno Soap - TP 1 applic DAILY PRN Administration HYGEINE Cyclobenzaprine HCl 10 mg 07/16/16 16:41 07/19/16 12:33 Flexeril - PO 10 mg TID PRN Administration MUSCLE SPASMS Diphenhydramine HCl 50 mg 07/16/16 16:35 08/03/16 21:05 Benadryl - PO 50 mg HSMR1 PRN Administration FOR ITCHING Eucalyptus/Menthol/Phenol/Sorbitol 1 each 07/16/16 16:35 Cepastat Lozenge - MM Q4H PRN SORE THROAT Guaifenesin 10 ml 07/16/16 16:35 Robitussin Dm - PO Q6H PRN COUGH Hydroxyzine Pamoate 50 mg 07/18/16 14:28 07/29/16 19:02 Vistaril - PO 50 mg Q4H PRN Administration ANXIETY Loperamide HCl 4 mg 07/16/16 16:35 Imodium - PO Q6H PRN DIARRHEA Magnesium Hydroxide 30 ml 07/16/16 16:35 Milk Of Magnesia - PO DAILY PRN CONSTIPATION Mirtazapine 15 mg 07/16/16 22:00 08/03/16 21:05 Remeron - PO 15 mg HS JUANA Administration Nicotine 14 mg 07/16/16 16:35 Nicoderm Patch - TD DAILY PRN WITHDRAWAL(CONT SUBST) Nicotine Polacrilex 2 mg 07/16/16 16:35 08/04/16 10:07 Nicorette Gum - BUC 2 mg Q2H PRN Administration NICOTINE REPLACEMENT RX Multivit/Folic Acid/Iron 1 tab 07/17/16 10:00 08/04/16 10:07 Vitamins (Sjr) - PO 1 tab DAILY JUANA Administration Pseudoephedrine/Triprolidine 1 combo 07/16/16 16:35 Actifed - PO TID PRN NASAL CONGESTION Quetiapine Fumarate 50 mg 07/18/16 22:00 08/03/16 21:05 Seroquel - PO 50 mg HS JUANA Administration Thiamine HCl 100 mg 07/16/16 22:00 08/03/16 21:05 Vitamin B1 - PO 100 mg HS JUANA Administration Current Side Effect: No Lab tests ordered: No Lab tests reviewed: Yes Provider note:: Patient will complete this program tomorrow 08/05/16.She has met her treatment goals and will continue to address her issues on outpatient basis at [facility] in [facility].Patient continues to find that Remeron 15 mg po hs and Serquel 50 mg po hs help to cope with insomnia,mood instability. Therapy provided focusing on support system,coping skills utlization to maintain recovery. Patient is stable for discharge tomorrow 08/05. Total face to face time:: 30 Mental Status Exam - Mental Status Exam Alert and Oriented to: Time, Place, Person Cognitive Function: Grossly Intact Patient Appearance: Well Groomed Mood: Euthymic Affect: Mood Congruent Patient Behavior: Cooperative Speech Pattern: Clear Voice Loudness: Normal Thought Process: Goal Oriented Hallucinations: Denies Suicidal Ideation: Denies Homicidal Ideation: Denies Insight/Judgement: Fair Sleep: Fair Appetite: Fair Muscle strength/Tone: Normal Gait/Station: Normal Psychiatric Treatment Plan - Problem List (1) Cocaine dependence Current Visit: Yes Qualifiers: (2) Nicotine dependence Current Visit: Yes Qualifiers: (3) Opioid dependence with withdrawal Current Visit: Yes (4) Bipolar II disorder Current Visit: Yes Comment: History.
[2016-08-04] MEDS: QUEtiapine FUMARATE 50 MG TABLET PO SCH (21:10)
[2016-08-04] MEDS: diphenhydrAMINE HCL 50 MG CAPSULE PO PRN (21:10)
[2016-08-04] MEDS: MIRTAZAPINE 15 MG TABLET (FP) PO SCH (21:10)
[2016-08-04] MEDS: THIAMINE HCL 100 MG TABLET (FP) PO SCH (21:10)
[2016-08-04] MEDS ORDERED: PT OWN MED DRAWER 7, Y5N ONE (23:04)
[2016-08-05] MEDS ORDERED: PT OWN MED DRAWER 7, Y5N ONE (00:12)
[2016-08-05 06:42] VITALS: BP 111/83; PULSE 80; TEMP 98.4
[2016-08-05] MEDS: PRENATAL VITAMINS W/ FOLIC ACID TABLET (FP) PO SCH (10:03)
[2016-08-05] MEDS: BACITRACIN 0.9 GM PACKET TP SCH (10:03)
[2016-08-05] MEDS: NICOTINE POLACRILEX 2 MG GUM BUC PRN (10:05)
== END 2016-08-05 10:12 | disposition home or self-care (01) | DRG 772 ==
LOC: YASAS 15:58 → Y3E 15:59
PROVIDERS: ADMIT Psychiatry & Neurology Psychiatry; ATTEND Psychiatry & Neurology Psychiatry
PROC: HZ42ZZZ Group Counseling for Substance Abuse Treatment, Cognitive-Behavioral (ICD-10-PCS; principal; 2016-07-16)
DX: F11.20 Opioid dependence, uncomplicated (principal); F14.20 Cocaine dependence, uncomplicated; F17.210 Nicotine dependence, cigarettes, uncomplicated; F31.81 Bipolar II disorder; B18.2 Chronic viral hepatitis C
CPT/HCPCS: 36415; 87389

== ENCOUNTER 2017-04-21 14:39 | Inpatient (IN) | payer OTHER ==
[2017-04-21 16:28] VITALS: BMI 34.2
--- NOTE | 2017-04-21 16:52 | HP ---
COWS - Scale Resting Pulse: 1= [place] 81-100 Sweatin= Chills/Flushing Restless Observation: 1= Difficult to Sit Still Pupil Size: 1= Pupils >than Normal Bone or Joint Aches: 1= Mild Discomfort Runny Nose/ Eye Tearin= Nasal Congestion GI Upset > 30mins: 1= Stomach Cramp Tremor Observation: 1= Tremor [place], Not Seen Yawning Observation: 1= 1-2x During Session Anxiety or Irritability: 2=Irritable/Anxious Goose Flesh Skin: 3=Piloerection COWS Score: 14 Admission ROS S - HPI Chief Complaint: WITHDRAWAL SYMPTOMS Allergies/Adverse Reactions: Allergies Allergy/AdvReac Type Severity Reaction Status Date / Time buspirone HCl [From BuSpar] Allergy Severe Hives Verified 04/21/17 16:47 ibuprofen Allergy Severe Hives Verified 04/21/17 16:47 History of Present Illness: 32 Y.O. WOMAN WITH A HISTORY OF OPIATE DEPENDENCE IS HERE SEEKING DETOX. SHE COMPLETED DETOX AND REHAB HERE IN 07/2016. LONGEST PERIOD CLEAN HAS BEEN 6 YEARS. Exam Limitations: No Limitations - Ebola screening Have you traveled outside of the country in the last 21 days: No Have you had contact with anyone from an Ebola affected area: No Have you been sick,other than usual withdrawal symptoms: No Do you have a fever: No - Review of Systems Constitutional: Chills, Diaphoresis EENT: reports: Tearing, Nose Congestion Respiratory: reports: No Symptoms reported Cardiac: reports: No Symptoms Reported GI: reports: No Symptoms Reported : reports: No Symptoms Reported Musculoskeletal: reports: No Symptoms Reported, Back Pain Integumentary: reports: No Symptoms Reported Neuro: reports: No Symptoms reported Endocrine: reports: No Symptoms Reported Hematology: reports: No Symptoms Reported Psychiatric: reports: Anxious, other (BIPOLAR, PTSD) Other Systems: Reviewed and Negative Patient History - Patient Medical History Hx Anemia: No Hx Asthma: No Hx Chronic Obstructive Pulmonary Disease (COPD): No Hx Cancer: No Hx Cardiac Disorders: No Hx Congestive Heart Failure: No Hx Hypertension: No Hx Hypercholesterolemia: No Hx Pacemaker: No HX Cerebrovascular Accident: No Hx Seizures: No Hx Dementia: No Hx Diabetes: No Hx Gastrointestinal Disorders: Yes (GERD) Hx Liver Disease: No Hx Genitourinary Disorders: No Hx Sexually Transmitted Disorders: No Hx Renal Disease (ESRD): No Hx Thyroid Disease: No Hx Human Immunodeficiency Virus (HIV): No Hx Hepatitis C: Yes (TREATED) Hx Depression: Yes Hx Suicide Attempt: Yes Hx Bipolar Disorder: Yes Hx Schizophrenia: No - Patient Surgical History Past Surgical History: No Hx Neurologic Surgery: No Hx Cataract Extraction: No Hx Cardiac Surgery: No Hx Lung Surgery: No Hx Breast Surgery: No Hx Breast Biopsy: No Hx Abdominal Surgery: No Hx Appendectomy: No Hx Cholecystectomy: No Hx Genitourinary Surgery: No Hx Section: No Hx Orthopedic Surgery: No Hx Hysterectomy: No Other Surgical History: d&c 2014 Anesthesia Reaction: No - PPD History Previous Implant?: Yes Documented Results: Negative w/proof Implanted On Prior R Admission?: Yes Date: 07/13/16 Results: 0 MM PPD to be Administered?: No - Reproductive History Patient is a Female of Child Bearing Age (11 -55 yrs old): No Last Menstrual Period: 04/03/17 Patient : No - Smoking Cessation Smoking history: Current every day smoker Have you smoked in the past 12 months: Yes Aproximately how many cigarettes per day: 10 Cigars Per Day: 0 Hx Chewing Tobacco Use: No Initiated information on smoking cessation: Yes 'Breaking Loose' booklet given: 04/21/17 - Substance & Tx. History Hx Alcohol Use: No Hx Substance Use: Yes Substance Use Type: Heroin Hx Substance Use Treatment: Yes (DETOX AND REHAB: 07/2016) - Substances Abused Heroin Route: Inhalation Frequency: Daily Amount used: 5 bags Age of first use: 29 Date of Last Use: 04/21/17 Family Disease History - Family Disease History Family Disease History: Heart Disease: Father, Other: Mother (NO CONTACT) Admission Physical Exam S - Vital Signs Vital Signs: Vital Signs - 24 hr 04/21/17 16:24 Temperature 98.7 F Pulse Rate 84 Respiratory 18 Rate Blood Pressure 142/88 - Physical General Appearance: Yes: Anxious HEENTM: Yes: Hearing grossly Normal, Normocephalic Respiratory: Yes: Chest Non-Tender, Lungs Clear, Normal Breath Sounds, No Respiratory Distress, No Accessory Muscle Use Neck: Yes: No masses,lesions,Nodules, Trachea in good position Breast: Yes: Breast Exam Deferred Abdominal: Yes: Normal Bowel Sounds, Non Tender Genitourinary: Yes: Other (NO COMPLAINTS REPORTED) Back: Yes: Normal Inspection Musculoskeletal: Yes: full range of Motion, Gait Steady, Pelvis Stable Extremities: Yes: Normal Inspection, Normal Range of Motion, Non-Tender Neurological: Yes: Alert, Motor Strength 5/5, Normal Mood/Affect, Normal Response Integumentary: Yes: Normal Color, Dry, Warm Lymphatic: Yes: Within Normal Limits - Diagnostic (1) Nicotine dependence Current Visit: Yes Status: Chronic Qualifiers: (2) Opioid dependence with withdrawal Current Visit: Yes Status: Chronic (3) GERD (gastroesophageal reflux disease) Current Visit: Yes Status: Chronic (4) HCV (hepatitis C virus) Current Visit: Yes Status: Chronic Cleared for Admission [facility] - Detox or Rehab [facility] Level of Care: Medically Managed Detox Regimen/Protocol: Methadone [facility] Breath Alcohol Content Breath Alcohol Content: 0 Urine Pregancy Test - Result Urine Test Results: Negative- NO Line Present Urine Drug Screen - Results Drug Screen Negative: No Urine Drug Screen Results: THC-Marijuana, OPI-Opiates, BZO-Benzodiazepines, MTD- Methadone, OXY-Oxycodone
[2017-04-21] MEDS ORDERED: MAG HYDROX/AL HYDROX/SIMETH 30 ML UNIT-DOSE CUP PO PRN (17:17)
[2017-04-21] MEDS ORDERED: MENTHOL/PHENOL 1 EACH UD MM PRN (17:17)
[2017-04-21] MEDS ORDERED: guaiFENesin/D-METHORPHAN HB 10 ML UNIT-DOSE CUPS PO PRN (17:17)
[2017-04-21] MEDS ORDERED: MAGNESIUM HYDROX 2400MG/30ML ORAL SUSPENSION 30 ML CUP PO PRN (17:17)
[2017-04-21] MEDS ORDERED: MAGNESIUM CITRATE 300 ML BOTTLE PO PRN (17:17)
[2017-04-21] MEDS ORDERED: hydrOXYzine PAMOATE 50 MG CAPSULE (FP) PO PRN (17:17)
[2017-04-21] MEDS ORDERED: P-EPHED 60MG/TRIPROLIDI 2.5MG TABLET PO PRN (17:17)
[2017-04-21] MEDS ORDERED: LOPERAMIDE HCL 2 MG CAPSULE PO PRN (17:17)
[2017-04-21] MEDS ORDERED: METHADONE HCL 10 MG TABLET (FOR DETOX USE ONLY) PO ONE ×2 (18:15→23:00)
[2017-04-21] MEDS: diazePAM 5 MG TABLET PO PRN ×2 (18:28→22:12)
[2017-04-21] MEDS: THIAMINE HCL 100 MG TABLET (FP) PO SCH (22:11)
[2017-04-21] MEDS: NICOTINE POLACRILEX 4 MG GUM BC PRN (22:13)
[2017-04-22 05:32] LABS: URINE APPEARANCE TURBID; URINE BILIRUBIN NEGATIVE (NEGATIVE); URINE BLOOD NEGATIVE (NEGATIVE); URINE COLOR YELLOW; URINE GLUCOSE (UA) NEGATIVE (NEGATIVE); URINE KETONE NEGATIVE (NEGATIVE); URINE NITRITE NEGATIVE (NEGATIVE)
[2017-04-22 05:38] LABS: URINE LEUK ESTERASE 2+ (NEGATIVE); URINE PROTEIN 2+ (NEGATIVE)
[2017-04-22 05:40] LABS: CALCIUM OXALATE CRYSTALS MANY /hpf (NONE SEEN); EPI CELLS MANY /HPF (FEW); URINE BACTERIA MODERATE /hpf (NONE SEEN); URINE MUCUS MANY
[2017-04-22] MEDS: ACETAMINOPHEN 325 MG TABLET (FP) PO PRN (06:56)
[2017-04-22] MEDS: diazePAM 5 MG TABLET PO PRN ×4 (06:56→22:08)
--- NOTE | 2017-04-22 09:18 | PN ---
S COWS - Scale Resting Pulse: 0= [place] 80 or Below Sweatin= Chills/Flushing Restless Observation: 1= Difficult to Sit Still Pupil Size: 0= Normal to Room Light Bone or Joint Aches: 2= Severe Diffuse Aches Runny Nose/ Eye Tearin= Runny Nose/Eyes GI Upset > 30mins: 2= Nausea/Diarrhea Tremor Observation of Outstretched Hands: 2= Slight Tremor Visible Yawning Observation: 0= None Anxiety or Irritability: 2=Irritable/Anxious Goose Flesh Skin: 0=Smooth Skin COWS Score: 12 BHS Progress Note (SOAP) Subjective: SWEAT JOINT ACHES RESTLESSNESS IRRITABLE ANXIETY TREMOR Objective: 04/22/17 09:17 Vital Signs Temperature 97.7 F 04/22/17 06:31 Pulse Rate 62 04/22/17 06:31 Respiratory Rate 18 04/22/17 06:31 Blood Pressure 133/85 04/22/17 06:31 O2 Sat by Pulse Oximetry (%) Laboratory Last Values Urine Color Yellow 04/21/17 22:35 Urine Appearance Turbid 04/21/17 22:35 Urine pH 8.0 (5.0-8.0) 04/21/17 22:35 Ur Specific [place] 1.023 (1.001-1.035) 04/21/17 22:35 Urine Protein 2+ (NEGATIVE) H 04/21/17 22:35 Urine Glucose (UA) Negative (NEGATIVE) 04/21/17 22:35 Urine Ketones Negative (NEGATIVE) 04/21/17 22:35 Urine Blood Negative (NEGATIVE) 04/21/17 22:35 Urine Nitrite Negative (NEGATIVE) 04/21/17 22:35 Urine Bilirubin Negative (NEGATIVE) 04/21/17 22:35 Urine Urobilinogen 2.0 mg/dL (0.2-1.0) H 04/21/17 22:35 Ur Leukocyte Esterase 2+ (NEGATIVE) H 04/21/17 22:35 Urine WBC (Auto) 25 /hpf (3-5) 04/21/17 22:35 Urine RBC (Auto) 10 /hpf (0-3) 04/21/17 22:35 Ur Epithelial Cells Many /HPF (FEW) 04/21/17 22:35 Calcium Oxalate Crystal Many /hpf (NONE SEEN) 02/27/18 22:35 Urine Bacteria Moderate /hpf (NONE SEEN) 04/21/17 22:35 Urine Mucus Many 04/21/17 22:35 LAB NOTED REPEAT UA Assessment: 04/22/17 09:18 WITHDRAWAL SX Plan: CONTINUE DETOX
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
[2017-04-22] MEDS ORDERED: METHADONE HCL 10 MG TABLET (FOR DETOX USE ONLY) PO ONE (10:00)
[2017-04-22] MEDS: PRENATAL VITAMINS W/ FOLIC ACID TABLET (FP) PO SCH (10:20)
[2017-04-22] MEDS: RANITIDINE HCL 150 MG TABLET (FP) PO SCH (10:21)
[2017-04-22] MEDS: NICOTINE POLACRILEX 4 MG GUM BC PRN ×3 (10:22→18:51)
[2017-04-22 10:28] LABS: HEMATOCRIT 45.1 % (32.4-45.2); HEMOGLOBIN 14.7 GM/dL (10.7-15.3); MCH 30.9 pg (25.7-33.7); MCHC 32.6 g/dl (32.0-36.0); MEAN CELL VOLUME 94.9 fl (80-96); MEAN PLT VOLUME 10.9 fl (7.5-11.1); PLATELET COUNT 160 K/MM3 (134-434); RBC 4.76 M/mm3 (3.60-5.2); RDW 12.9 % (11.6-15.6); WHITE BLOOD COUNT 7.6 K/mm3 (4.0-10.0)
[2017-04-22 10:29] LABS: CHLORIDE 102 mmol/L (98-107); POTASSIUM 4.4 mmol/L (3.5-5.1); SODIUM 140 mmol/L (136-145)
--- NOTE | 2017-04-22 10:31 | EKG ---
Test Reason : Blood Pressure : / mmHG Vent. Rate : 065 BPM Atrial Rate : 065 BPM P-R Int : 170 ms QRS Dur : 092 ms QT Int : 424 ms P-R-T Axes : 006 005 021 degrees QTc Int : 440 ms NORMAL SINUS RHYTHM SEPTAL INFARCT (CITED ON OR BEFORE 11-JUL-2016) ABNORMAL ECG WHEN COMPARED WITH ECG OF 11-JUL-2016 18:10, QUESTIONABLE CHANGE IN INITIAL FORCES OF SEPTAL LEADS Confirmed by GILBERT HUANG, NOEMÍ ([id number]) on 04/22/2017 10:31:14 AM Referred By: Confirmed By:NOEMÍ HUNT MD
[2017-04-22 10:40] LABS: ALBUMIN 3.3 g/dl (3.4-5.0); ALK PHOS 91 U/L (45-117); ANION GAP 8 (8-16); BILIRUBIN,TOTAL 0.4 mg/dL (0.2-1.0); BLOOD UREA NITROGEN 8 mg/dL (7-18); CALCIUM 8.9 mg/dL (8.5-10.1); CO2 30 mmol/L (21-32); CREATININE 0.8 mg/dL (0.55-1.02); GLUCOSE,RANDOM 84 mg/dL (74-106); SGOT/AST 18 U/L (15-37); SGPT/ALT 23 U/L (12-78); TOT PROT 6.9 g/dl (6.4-8.2)
[2017-04-22] MEDS: METHOCARBAMOL 500 MG TABLET PO SCH ×3 (13:42→22:08)
[2017-04-22 16:06] LABS: URINE APPEARANCE CLOUDY; URINE BILIRUBIN NEGATIVE (NEGATIVE); URINE BLOOD NEGATIVE (NEGATIVE); URINE COLOR AMBER; URINE GLUCOSE (UA) NEGATIVE (NEGATIVE); URINE KETONE NEGATIVE (NEGATIVE); URINE NITRITE NEGATIVE (NEGATIVE)
[2017-04-22 16:07] LABS: URINE LEUK ESTERASE 3+ (NEGATIVE); URINE PROTEIN 1+ (NEGATIVE)
[2017-04-22 16:13] LABS: CALCIUM OXALATE CRYSTALS MODERATE /hpf (NONE SEEN); EPI CELLS MANY /HPF (FEW); URINE MUCUS FEW
[2017-04-22] MEDS: THIAMINE HCL 100 MG TABLET (FP) PO SCH (22:08)
[2017-04-22] MEDS: ZOLPIDEM TARTRATE 5 MG TABLET PO PRN (22:08)
[2017-04-22] MEDS: LURASIDONE HCL 20 MG TABLET PO SCH (22:08)
[2017-04-23] MEDS: diazePAM 5 MG TABLET PO PRN ×4 (05:40→22:23)
[2017-04-23] MEDS: ACETAMINOPHEN 325 MG TABLET (FP) PO PRN (05:41)
--- NOTE | 2017-04-23 09:58 | PN ---
BHS COWS - Scale Resting Pulse: 0= [place] 80 or Below Sweatin= Chills/Flushing Restless Observation: 1= Difficult to Sit Still Pupil Size: 0= Normal to Room Light Bone or Joint Aches: 1= Mild Discomfort Runny Nose/ Eye Tearin= Nasal Congestion GI Upset > 30mins: 1= Stomach Cramp Tremor Observation of Outstretched Hands: 1= Tremor [place], Not Seen Yawning Observation: 2= >3x During Session Anxiety or Irritability: 2=Irritable/Anxious Goose Flesh Skin: 0=Smooth Skin COWS Score: 10 BHS Progress Note (SOAP) Subjective: sweat gi distress tremor anxiety restlessness irritable Objective: 04/23/17 09:58 Vital Signs Temperature 97.7 F 04/23/17 06:00 Pulse Rate 58 L 04/23/17 06:00 Respiratory Rate 18 04/23/17 06:00 Blood Pressure 113/69 04/23/17 06:00 O2 Sat by Pulse Oximetry (%) Laboratory Last Values WBC 7.6 K/mm3 (4.0-10.0) 04/22/17 07:00 RBC 4.76 M/mm3 (3.60-5.2) 04/22/17 07:00 Hgb 14.7 GM/dL (10.7-15.3) 04/22/17 07:00 Hct 45.1 % (32.4-45.2) 04/22/17 07:00 MCV 94.9 fl (80-96) 04/22/17 07:00 MCH 30.9 pg (25.7-33.7) 04/22/17 07:00 MCHC 32.6 g/dl (32.0-36.0) 04/22/17 07:00 RDW 12.9 % (11.6-15.6) 04/22/17 07:00 Plt Count 160 K/MM3 (134-434) 04/22/17 07:00 MPV 10.9 fl (7.5-11.1) D 04/22/17 07:00 Sodium 140 mmol/L (136-145) 04/22/17 07:00 Potassium 4.4 mmol/L (3.5-5.1) 04/22/17 07:00 Chloride 102 mmol/L (98-107) 04/22/17 07:00 Carbon Dioxide 30 mmol/L (21-32) 04/22/17 07:00 Anion Gap 8 (8-16) 04/22/17 07:00 BUN 8 mg/dL (7-18) 04/22/17 07:00 Creatinine 0.8 mg/dL (0.55-1.02) 04/22/17 07:00 Creat Clearance w eGFR > 60 (>60) 04/22/17 07:00 Random Glucose 84 mg/dL (74-106) 04/22/17 07:00 Calcium 8.9 mg/dL (8.5-10.1) 04/22/17 07:00 Total Bilirubin 0.4 mg/dL (0.2-1.0) D 04/22/17 07:00 AST 18 U/L (15-37) 04/22/17 07:00 ALT 23 U/L (12-78) 04/22/17 07:00 Alkaline Phosphatase 91 U/L (45-117) 04/22/17 07:00 Total Protein 6.9 g/dl (6.4-8.2) 04/22/17 07:00 Albumin 3.3 g/dl (3.4-5.0) L 04/22/17 07:00 Urine Color [place] 04/22/17 11:45 Urine Appearance Cloudy 04/22/17 11:45 Urine pH 6.0 (5.0-8.0) D 04/22/17 11:45 Ur Specific [place] 1.023 (1.001-1.035) 04/22/17 11:45 Urine Protein 1+ (NEGATIVE) H 04/22/17 11:45 Urine Glucose (UA) Negative (NEGATIVE) 04/22/17 11:45 Urine Ketones Negative (NEGATIVE) 04/22/17 11:45 Urine Blood Negative (NEGATIVE) 04/22/17 11:45 Urine Nitrite Negative (NEGATIVE) 04/22/17 11:45 Urine Bilirubin Negative (NEGATIVE) 04/22/17 11:45 Urine Urobilinogen 2.0 mg/dL (0.2-1.0) H 04/22/17 11:45 Ur Leukocyte Esterase 3+ (NEGATIVE) H 04/22/17 11:45 Urine WBC (Auto) 41 /hpf (3-5) 04/22/17 11:45 Urine RBC (Auto) 9 /hpf (0-3) 04/22/17 11:45 Ur Epithelial Cells Many /HPF (FEW) 04/22/17 11:45 Calcium Oxalate Crystal Moderate /hpf (NONE SEEN) 04/22/17 11:45 Urine Bacteria Moderate /hpf (NONE SEEN) 04/21/17 22:35 Urine Mucus Few 04/22/17 11:45 RPR Titer Nonreactive (NONREACTIVE) 04/22/17 07:00 lab noted 04/23/17 10:02 begin uti treatment Assessment: 04/23/17 10:04 withdrawal sx uti Plan: continue detox bactrim ds bid x 5 days health teaching on personal hygiene
[2017-04-23] MEDS ORDERED: METHADONE HCL 5 MG TABLET (FOR DETOX USE ONLY) PO ONE (10:00)
[2017-04-23] MEDS ORDERED: SULFAMETHOXAZOLE/TRIMETHOPRIM 800MG/160MG D.S. TABLET PO SCH (10:15)
[2017-04-23] MEDS: RANITIDINE HCL 150 MG TABLET (FP) PO SCH (10:20)
[2017-04-23] MEDS: METHOCARBAMOL 500 MG TABLET PO SCH ×4 (10:20→23:36)
[2017-04-23] MEDS: PRENATAL VITAMINS W/ FOLIC ACID TABLET (FP) PO SCH (10:20)
[2017-04-23] MEDS: NICOTINE POLACRILEX 4 MG GUM BC PRN ×2 (10:45→17:43)
[2017-04-23] MEDS: LURASIDONE HCL 20 MG TABLET PO SCH (22:20)
[2017-04-23] MEDS: THIAMINE HCL 100 MG TABLET (FP) PO SCH (22:20)
[2017-04-23] MEDS: SULFAMETHOXAZOLE/TRIMETHOPRIM 800MG/160MG D.S. TABLET PO SCH (22:20)
[2017-04-24] MEDS ORDERED: METHADONE HCL 5 MG TABLET (FOR DETOX USE ONLY) PO ONE (10:00)
--- NOTE | 2017-04-24 10:15 | PN ---
BHS Progress Note (SOAP) Subjective: agitation sweats I want to see dietary Objective: 04/24/17 10:14 Vital Signs Temperature 97.7 F 04/24/17 06:00 Pulse Rate 58 L 04/24/17 06:00 Respiratory Rate 18 04/24/17 06:00 Blood Pressure 116/68 04/24/17 06:00 O2 Sat by Pulse Oximetry (%) aaox3 ambulating no acute distress Assessment: 04/24/17 10:14 withdrawal sx Plan: continue detox increase fluids dietary consultation ordered
[2017-04-24] MEDS: diazePAM 5 MG TABLET PO PRN ×2 (10:21→14:25)
[2017-04-24] MEDS: SULFAMETHOXAZOLE/TRIMETHOPRIM 800MG/160MG D.S. TABLET PO SCH ×2 (10:22→22:38)
[2017-04-24] MEDS: METHOCARBAMOL 500 MG TABLET PO SCH ×4 (10:22→22:38)
[2017-04-24] MEDS: RANITIDINE HCL 150 MG TABLET (FP) PO SCH (10:22)
[2017-04-24] MEDS: PRENATAL VITAMINS W/ FOLIC ACID TABLET (FP) PO SCH (10:22)
[2017-04-24] MEDS: NICOTINE POLACRILEX 4 MG GUM BC PRN (10:24)
[2017-04-24] MEDS: THIAMINE HCL 100 MG TABLET (FP) PO SCH (22:38)
[2017-04-24] MEDS: LURASIDONE HCL 20 MG TABLET PO SCH (22:38)
[2017-04-24] MEDS: ZOLPIDEM TARTRATE 5 MG TABLET PO PRN (22:38)
[2017-04-25] MEDS ORDERED: METHADONE HCL 10 MG TABLET (FOR DETOX USE ONLY) PO ONE (10:00)
[2017-04-25] MEDS: METHOCARBAMOL 500 MG TABLET PO SCH ×4 (10:20→22:29)
[2017-04-25] MEDS: SULFAMETHOXAZOLE/TRIMETHOPRIM 800MG/160MG D.S. TABLET PO SCH ×2 (10:20→22:29)
[2017-04-25] MEDS: PRENATAL VITAMINS W/ FOLIC ACID TABLET (FP) PO SCH (10:20)
[2017-04-25] MEDS: RANITIDINE HCL 150 MG TABLET (FP) PO SCH (10:20)
[2017-04-25] MEDS: NICOTINE POLACRILEX 4 MG GUM BC PRN ×3 (10:22→17:36)
[2017-04-25] MEDS ORDERED: COLLOIDAL OATMEAL 1 BAR EACH TP PRN (15:39)
--- NOTE | 2017-04-25 15:39 | PN ---
S Progress Note (SOAP) Subjective: ALERT,INTERRUPTED SLEEP, Objective: 04/25/17 15:37 Vital Signs Temperature 97.7 F 04/25/17 11:50 Pulse Rate 76 04/25/17 11:50 Respiratory Rate 18 04/25/17 11:50 Blood Pressure 112/71 04/25/17 11:50 O2 Sat by Pulse Oximetry (%) Assessment: 04/25/17 15:37 WITHDRAWAL SYMPTOM Plan: CONTINUE DETOX,DISCHARGE IN AM
[2017-04-25] MEDS: LURASIDONE HCL 20 MG TABLET PO SCH (22:29)
[2017-04-25] MEDS: ZOLPIDEM TARTRATE 5 MG TABLET PO PRN (22:29)
[2017-04-25] MEDS: THIAMINE HCL 100 MG TABLET (FP) PO SCH (22:29)
[2017-04-26] MEDS ORDERED: METHADONE HCL 5 MG TABLET (FOR DETOX USE ONLY) PO ONE (06:00)
[2017-04-26 08:13] VITALS: BP 101/60; PULSE 63; TEMP 97.7
--- NOTE | 2017-04-26 09:09 | DS ---
[facility] Detox Discharge Summary Admission Date: 04/21/17 Discharge Date: 04/26/17 - History Present History: Opioid Dependence Additional Comments: patient would consider to maintenance sober through community support meeting and self help group - Physical Exam Results Vital Signs: Vital Signs Temperature 97.7 F 04/26/17 08:12 Pulse Rate 63 04/26/17 08:12 Respiratory Rate 18 04/26/17 08:12 Blood Pressure 101/60 04/26/17 08:12 O2 Sat by Pulse Oximetry (%) Pertinent Admission Physical Exam Findings: withdrawal sx Laboratory Last Values WBC 7.6 K/mm3 (4.0-10.0) 04/22/17 07:00 RBC 4.76 M/mm3 (3.60-5.2) 04/22/17 07:00 Hgb 14.7 GM/dL (10.7-15.3) 04/22/17 07:00 Hct 45.1 % (32.4-45.2) 04/22/17 07:00 MCV 94.9 fl (80-96) 04/22/17 07:00 MCH 30.9 pg (25.7-33.7) 04/22/17 07:00 MCHC 32.6 g/dl (32.0-36.0) 04/22/17 07:00 RDW 12.9 % (11.6-15.6) 04/22/17 07:00 Plt Count 160 K/MM3 (134-434) 04/22/17 07:00 MPV 10.9 fl (7.5-11.1) D 04/22/17 07:00 Sodium 140 mmol/L (136-145) 04/22/17 07:00 Potassium 4.4 mmol/L (3.5-5.1) 04/22/17 07:00 Chloride 102 mmol/L (98-107) 04/22/17 07:00 Carbon Dioxide 30 mmol/L (21-32) 04/22/17 07:00 Anion Gap 8 (8-16) 04/22/17 07:00 BUN 8 mg/dL (7-18) 04/22/17 07:00 Creatinine 0.8 mg/dL (0.55-1.02) 04/22/17 07:00 Creat Clearance w eGFR > 60 (>60) 04/22/17 07:00 Random Glucose 84 mg/dL (74-106) 04/22/17 07:00 Calcium 8.9 mg/dL (8.5-10.1) 04/22/17 07:00 Total Bilirubin 0.4 mg/dL (0.2-1.0) D 04/22/17 07:00 AST 18 U/L (15-37) 04/22/17 07:00 ALT 23 U/L (12-78) 04/22/17 07:00 Alkaline Phosphatase 91 U/L (45-117) 04/22/17 07:00 Total Protein 6.9 g/dl (6.4-8.2) 04/22/17 07:00 Albumin 3.3 g/dl (3.4-5.0) L 04/22/17 07:00 Urine Color [place] 04/22/17 11:45 Urine Appearance Cloudy 04/22/17 11:45 Urine pH 6.0 (5.0-8.0) D 04/22/17 11:45 Ur Specific [place] 1.023 (1.001-1.035) 04/22/17 11:45 Urine Protein 1+ (NEGATIVE) H 04/22/17 11:45 Urine Glucose (UA) Negative (NEGATIVE) 04/22/17 11:45 Urine Ketones Negative (NEGATIVE) 04/22/17 11:45 Urine Blood Negative (NEGATIVE) 04/22/17 11:45 Urine Nitrite Negative (NEGATIVE) 04/22/17 11:45 Urine Bilirubin Negative (NEGATIVE) 04/22/17 11:45 Urine Urobilinogen 2.0 mg/dL (0.2-1.0) H 04/22/17 11:45 Ur Leukocyte Esterase 3+ (NEGATIVE) H 04/22/17 11:45 Urine WBC (Auto) 41 /hpf (3-5) 04/22/17 11:45 Urine RBC (Auto) 9 /hpf (0-3) 04/22/17 11:45 Ur Epithelial Cells Many /HPF (FEW) 04/22/17 11:45 Calcium Oxalate Crystal Moderate /hpf (NONE SEEN) 04/22/17 11:45 Urine Bacteria Moderate /hpf (NONE SEEN) 04/21/17 22:35 Urine Mucus Few 04/22/17 11:45 RPR Titer Nonreactive (NONREACTIVE) 04/22/17 07:00 lab noted - Treatment Hospital Course: Detox Protocol Followed, Detoxed Safely, Responded well, Discharged Condition Good, Rehab Referral Accepted Patient has Accepted a Rehab Referral to: patient understands the importance of aftercare - Medication Discharge Medications: Ambulatory Orders Lurasidone HCl [Latuda -] 20 mg PO DAILY 04/21/17 Prazosin HCl [Minipress -] 2 mg PO HS 04/21/17 - Diagnosis (1) Opioid dependence with withdrawal Current Visit: Yes Status: Acute (2) Bipolar II disorder Current Visit: Yes Status: Suspected - AMA Did Patient Leave Against Medical Advice: No
== END 2017-04-26 09:50 | disposition home or self-care (01) | DRG 773 ==
LOC: YASAS 14:39 → Y6N 17:29
PROVIDERS: ADMIT Internal Medicine; ATTEND Internal Medicine
PROC: HZ2ZZZZ Detoxification Services for Substance Abuse Treatment (ICD-10-PCS; principal; 2017-04-21)
DX: F11.23 Opioid dependence with withdrawal (principal); F17.210 Nicotine dependence, cigarettes, uncomplicated; F31.81 Bipolar II disorder; F19.24 Other psychoactive substance dependence with psychoactive substance-induced mood disorder; K21.9 Gastro-esophageal reflux disease without esophagitis; G47.00 Insomnia, unspecified; B18.2 Chronic viral hepatitis C; N39.0 Urinary tract infection, site not specified; Z88.8 Allergy status to other drugs, medicaments and biological substances
CPT/HCPCS: 36415; 80053; 81003; 81015; 85027; 86593; 93005; 93010